=== PATIENT | female | born 1995 | race Caucasian/White ===

== ENCOUNTER 2021-11-04 00:23 | Emergency (ER) | payer OTHER ==
[~2021-11-04] VITALS: Ht 154.9 cm; Wt 61.2 kg
[2021-11-04 00:35] VITALS: BP 122/81
[2021-11-04] MEDS ORDERED: IBUP-2070 PO (01:20)
== END 2021-11-04 01:31 | disposition home or self-care (01) ==
LOC: EDH 00:23
DX: S00.33XA Contusion of nose, initial encounter (principal); Y08.89XA Assault by other specified means, initial encounter; Y93.89 Activity, other specified; Y92.89 Other specified places as the place of occurrence of the external cause; Y99.8 Other external cause status
CPT/HCPCS: 70160

== ENCOUNTER 2022-02-13 16:30 | Emergency (ER) | payer OTHER ==
[~2022-02-13] VITALS: Ht 154.9 cm; Wt 59.0 kg
[~2022-02-13 16:30] MED LIST: IBUP-2070 PO
[2022-02-13 16:35] VITALS: BP 116/55
[2022-02-13 17:20] LABS: BASOPHILS % (AUTO) 0.4 % (0.0-5.0); EOSINOPHILS % (AUTO) 2.4 % (0.0-8.0); HEMATOCRIT 41.5 % (36-48); LYMPHOCYTES % (AUTO) 27.2 % (21.0-51.0); MEAN CORPUSCULAR HEMOGLOBIN 29.3 pg (27.0-33.0); MEAN CORPUSCULAR HGB CONC 33.5 g/dL (32.0-36.0); MEAN CORPUSCULAR VOLUME 87.4 fL (79-99); MONOCYTES % (AUTO) 9.1 % (3.0-13.0); NEUTROPHILS % (AUTO) 60.6 % (40.0-77.0); PLATELET COUNT (AUTO) 260 K/uL (130-400); RED BLOOD CELL COUNT(AUTO) 4.75 MIL/uL (4.00-5.50); RED CELL DISTRIBUTION WIDTH 12.3 % (11.0-15.5); WHITE BLOOD COUNT (AUTO) 9.5 K/uL (4.8-10.8)
[2022-02-13 17:20] LABS: APPEARANCE,URINE CLEAR (CLEAR); BILIRUBIN,URINE NEGATIVE (NEGATIVE); COLOR,URINE YELLOW (YELLOW); GLUCOSE, URINE (UA) NEGATIVE (NEGATIVE); KETONES,URINE NEGATIVE (NEGATIVE); LEUKOCYTE ESTERASE ,URINE NEGATIVE Leu/uL (NEGATIVE); NITRATE,URINE NEGATIVE (NEGATIVE); PH,URINE 6.5 (5.0-8.0); PROTEIN,URINE 20 mg/dL (NEGATIVE)
[2022-02-13 17:25] LABS: BACTERIA,URINE RARE /HPF (None Seen); MUCUS,URINE MANY LPF (None Seen); SQUAMOUS EPITHELIAL CELL,UR MOD /HPF (0-2)
[2022-02-13 17:27] LABS: CREATININE 0.7 mg/dL (0.5-1.5); POTASSIUM 4.1 mmol/L (3.5-5.1)
[2022-02-13 17:27] LABS: AMPHET/METH SCREEN,URINE NEGATIVE (NEGATIVE); BARBITURATE SCREEN, URINE NEGATIVE (NEGATIVE); BENZODIAZEPINES SCREEN,URINE NEGATIVE (NEGATIVE); CANNABINOID SCREEN,URINE POSITIVE (NEGATIVE); COCAINE SCREEN,URINE POSITIVE (NEGATIVE); OPIATE SCREEN,URINE NEGATIVE (NEGATIVE); PHENCYCLIDINE SCREEN,URINE NEGATIVE (NEGATIVE)
[2022-02-13 17:31] LABS: HCG,QUALITATIVE URINE NEGATIVE (NEGATIVE)
[2022-02-13 17:34] LABS: ALBUMIN 3.9 g/dL (3.5-5.0); TOTAL PROTEIN, SERUM 7.3 g/dL (6.0-8.3)
[2022-02-13] MEDS ORDERED: CEFU500T67 PO (17:40)
[2022-02-13] MEDS ORDERED: LIDOCAINE HCL 1% 20 ML VIAL ONE (17:58)
[2022-02-13] MEDS ORDERED: CEFTRIAXONE 1G VIAL IM ONE (18:00)
[2022-02-13] MEDS ORDERED: LORAZEPAM 1 MG TABLET PO ONE (18:00)
== END 2022-02-13 19:07 | disposition home or self-care (01) ==
LOC: EDH 16:30
DX: N39.0 Urinary tract infection, site not specified (principal); R07.89 Other chest pain; F14.10 Cocaine abuse, uncomplicated; F12.10 Cannabis abuse, uncomplicated
CPT/HCPCS: 99285; 71045; 84484; 80053; 80305; 85025; 87088; 81025; 36415; 96372; 93005; 81001; J0696

== ENCOUNTER 2022-02-19 14:35 | Emergency (ER) | payer OTHER ==
[~2022-02-19] VITALS: Ht 154.9 cm; Wt 59.0 kg
[~2022-02-19 14:35] MED LIST changes: +CEFU500T67 PO
[2022-02-19 14:40] VITALS: BP 138/73
[2022-02-19] MEDS ORDERED: IBUPROFEN 600 MG TABLET PO ONE (15:00)
== END 2022-02-19 15:47 | disposition left against medical advice (07) ==
LOC: EDH 14:35
DX: S40.022A Contusion of left upper arm, initial encounter (principal); S00.83XA Contusion of other part of head, initial encounter; X58.XXXA Exposure to other specified factors, initial encounter; Y93.89 Activity, other specified; Y92.89 Other specified places as the place of occurrence of the external cause; Y99.8 Other external cause status
CPT/HCPCS: 99282

== ENCOUNTER → 2022-03-17 | Emergency (ER) | payer OTHER ==
[~2022-03-17] VITALS: Ht 154.9 cm; Wt 67.1 kg
[2022-03-17 20:23] VITALS: BP 123/68
== END | disposition left against medical advice (07) ==
LOC: EDH 20:19
DX: R07.89 Other chest pain (principal); R07.0 Pain in throat; Z53.21 Procedure and treatment not carried out due to patient leaving prior to being seen by health care provider
CPT/HCPCS: 93005

== ENCOUNTER 2022-03-24 12:32 | Emergency (ER) | payer OTHER ==
[~2022-03-24] VITALS: Ht 154.9 cm; Wt 63.5 kg
[2022-03-24 15:34] VITALS: BP 127/65
== END 2022-03-24 15:54 | disposition home or self-care (01) ==
LOC: EDH 12:32
DX: J02.9 Acute pharyngitis, unspecified (principal)
CPT/HCPCS: 70360; 87880

== ENCOUNTER 2022-03-27 16:17 | Emergency (ER) | payer OTHER ==
[~2022-03-27] VITALS: Ht 154.9 cm; Wt 63.5 kg
[2022-03-27 16:47] LABS: APPEARANCE,URINE CLOUDY (CLEAR); BILIRUBIN,URINE NEGATIVE (NEGATIVE); COLOR,URINE YELLOW (YELLOW); GLUCOSE, URINE (UA) NEGATIVE (NEGATIVE); KETONES,URINE 40 mg/dL (NEGATIVE); LEUKOCYTE ESTERASE ,URINE NEGATIVE Leu/uL (NEGATIVE); NITRATE,URINE NEGATIVE (NEGATIVE); PH,URINE 7.5 (5.0-8.0); PROTEIN,URINE 30 mg/dL (NEGATIVE); UROBILINOGEN,URINE 3 mg/dL (0.2-1.0)
[2022-03-27 16:57] LABS: HCG,QUALITATIVE URINE NEGATIVE (NEGATIVE)
[2022-03-27 17:02] LABS: BACTERIA,URINE RARE /HPF (None Seen); MUCUS,URINE MOD LPF (None Seen); SQUAMOUS EPITHELIAL CELL,UR MOD /HPF (0-2)
[2022-03-27 23:39] VITALS: BP 122/65
== END 2022-03-27 23:57 | disposition home or self-care (01) ==
LOC: EDH 16:17
DX: R13.10 Dysphagia, unspecified (principal)
CPT/HCPCS: 76536; 81001; 81025; 87088; 87880

== ENCOUNTER 2022-04-13 04:30 | Emergency (ER) | payer OTHER ==
[~2022-04-13] VITALS: Ht 152.4 cm; Wt 63.5 kg
[2022-04-13 04:35] VITALS: BP 134/70
== END 2022-04-13 05:17 | disposition home or self-care (01) ==
LOC: EDH 04:30
DX: Z00.00 Encounter for general adult medical examination without abnormal findings (principal)